=== PATIENT | male | born 1990 | race Two or more races ===

== ENCOUNTER 2017-01-22 16:03 | Inpatient (IN) | payer MEDICAID, OTHER ==
[~2017-01-22] VITALS: Ht 153.9 cm; Wt 76.1 kg
[2017-01-22] MEDS ORDERED: METOCLOPRAMIDE HCL 5MG/ml INJ 2ml VIAL ONE (16:37)
[2017-01-22 16:42] LABS: Basophils # (auto) 0 uL; Basophils % (auto) 0.3 % (0.0-2.0); DEFINITIVE VIEW TRANSMISSION; Eosinophils # (auto) 0 uL; Hematocrit 50.8 % (41.0-53.0); Hemoglobin 17.3 g/dL (13.5-17.5); Lymphocytes # (auto) 1.3 uL; Mean Corpuscular Hemoglobin 35.8 pg (28.0-32.0); Mean Corpuscular Hgb Conc. 34.1 g/dL (32.0-36.0); Mean Corpuscular Volume 104.8 fL (80.0-100.0); Mean Platelet Volume 8.5 fL (7.4-10.4); Monocytes # (auto) 0.7 uL; Monocytes % (auto) 8.8 % (0.0-12.0); Neutrophils # (auto) 6.2 uL; Neutrophils % (auto) 74.9 % (37.0-80.0); Platelet Count (auto) 326 10^3/uL (140-450); Red Cell Distribution Width 14.1 % (11.6-16.0); White Blood Cell 8.3 10^3/uL (4.4-10.8)
[2017-01-22] MEDS ORDERED: METOCLOPRAMIDE HCL 5MG/ml INJ 2ml VIAL IV ONE (16:45)
[2017-01-22] MEDS ORDERED: SODIUM CHLORIDE 0.9% 1,000 ML IV ONE ×2 (16:46→17:00)
[2017-01-22 17:07] LABS: Albumin 4.7 g/dL (3.4-5.0); Alkaline Phosphatase 71 U/L (45-117); Anion Gap 11 (5-15); Aspartate Aminotransferase 33 U/L (15-37); Bilirubin, Total 1.5 mg/dL (0.2-1.0); Blood Urea Nitrogen 15 mg/dL (7-18); Calcium 9.1 mg/dL (8.5-10.1); Carbon Dioxide 23 mmol/L (21-32); Chloride 105 mmol/L (98-107); GFR African American 107 mL/min; GFR Non-African American 88 mL/min; Glucose 107 mg/dL (74-106); Magnesium 2.5 mg/dL (1.6-2.6); Sodium 139 mmol/L (136-145); Total Protein 9.2 g/dL (6.4-8.2)
[2017-01-22 17:26] LABS: Macrocytosis Moderate; Platelet Estimate Adequate
[2017-01-22] MEDS ORDERED: PROCHLORPERAZINE EDISYLATE 5 MG/ML 2ML VIAL ONE (17:48)
[2017-01-22] MEDS ORDERED: PROCHLORPERAZINE EDISYLATE 5 MG/ML 2ML VIAL IV ONE (18:00)
[2017-01-22] MEDS ORDERED: MORPHINE SULF INJ 2 MG/ML SYRINGE 1ML IV PRN (18:15)
[2017-01-22] MEDS ORDERED: TEMAZEPAM 15 MG CAP PO PRN (18:15)
[2017-01-22] MEDS ORDERED: DOCUSATE SOD 100 MG CAP PO PRN (18:15)
[2017-01-22] MEDS ORDERED: HYDROcodone-ACET 5/325MG TAB PO PRN (18:15)
[2017-01-22] MEDS ORDERED: cloNIDine HCL 0.1 MG TAB PO PRN (18:15)
[2017-01-22] MEDS ORDERED: ACETAMINOPHEN 325 MG TAB PO PRN (18:15)
[2017-01-22] MEDS: SODIUM CHLORIDE 0.9% 1,000 ML IV SCH (18:35)
[2017-01-22] MEDS ORDERED: PROMETHAZINE HCL 25 MG/ML 1ML IV ONE (19:30)
[2017-01-22 22:00] VITALS: BP 141/80
[2017-01-22] MEDS: FAMOTIDINE 20 MG TAB PO SCH (22:02)
[2017-01-22] MEDS: ONDANSETRON HCL 4 MG/2 ML VIAL IV PRN (22:22)
[2017-01-22] MEDS ORDERED: DIVA250T51 PO (22:29)
[2017-01-23] MEDS: SODIUM CHLORIDE 0.9% 1,000 ML IV SCH ×3 (01:14→19:09)
[2017-01-23] MEDS: ONDANSETRON HCL 4 MG/2 ML VIAL IV PRN ×2 (04:22→22:33)
[2017-01-23 05:43] VITALS: BP 157/75
[2017-01-23 06:26] LABS: Basophils # (auto) 0 uL; DEFINITIVE VIEW TRANSMISSION; Eosinophils # (auto) 0 uL; Hematocrit 44.8 % (41.0-53.0); Hemoglobin 15.4 g/dL (13.5-17.5); Lymphocytes # (auto) 0.5 uL; Lymphocytes % (auto) 8.3 % (10.0-50.0); Mean Corpuscular Hgb Conc. 34.3 g/dL (32.0-36.0); Mean Corpuscular Volume 104.7 fL (80.0-100.0); Mean Platelet Volume 8.6 fL (7.4-10.4); Monocytes # (auto) 0.3 uL; Monocytes % (auto) 5.4 % (0.0-12.0); Neutrophils # (auto) 5.3 uL; Neutrophils % (auto) 86.3 % (37.0-80.0); Platelet Count (auto) 242 10^3/uL (140-450); Red Cell Distribution Width 14.4 % (11.6-16.0); White Blood Cell 6.1 10^3/uL (4.4-10.8)
[2017-01-23 06:41] LABS: Albumin 3.6 g/dL (3.4-5.0); BUN/Creatinine Ratio 15.6; Calcium 8.6 mg/dL (8.5-10.1); Potassium 3.9 mmol/L (3.5-5.1)
[2017-01-23 06:44] LABS: Bilirubin, Total 1.9 mg/dL (0.2-1.0); Total Protein 7.9 g/dL (6.4-8.2)
[2017-01-23 08:00] VITALS: BP 164/80
[2017-01-23 08:09] LABS: Urine Bilirubin Negative (Negative); Urine Blood TRACE /uL (Negative); Urine Color Yellow (Yellow); Urine Glucose Normal (Normal); Urine Mucus FEW (None Seen); Urine Nitrite Negative (Negative); Urine RBC 2 /hpf (0 - 3); Urine Urobilinogen Normal (Negative)
[2017-01-23 08:14] LABS: Urine Ketone 4+ (Negative)
[2017-01-23 09:00] VITALS: BP 164/80
[2017-01-23] MEDS ORDERED: cefTRIAXone 1GM/50ML D5W 50 ML IV ONE (09:30)
[2017-01-23] MEDS ORDERED: IBUPROFEN 600 MG TAB PO ONE (09:30)
[2017-01-23] MEDS: MULTIPLE VITAMIN TAB PO SCH (11:01)
[2017-01-23] MEDS: FAMOTIDINE 20 MG TAB PO SCH (11:01)
[2017-01-23 13:00] VITALS: BP 124/78
[2017-01-23] MEDS: IBUPROFEN 600 MG TAB PO SCH ×2 (13:44→22:32)
[2017-01-23] MEDS ORDERED: metroNIDAZOLE 500MG/100ML 100 ML IV SCH (14:00)
[2017-01-23 16:49] VITALS: BP 137/98
[2017-01-23 22:21] VITALS: BP 133/82
[2017-01-24] MEDS: SODIUM CHLORIDE 0.9% 1,000 ML IV SCH ×2 (03:29→11:49)
[2017-01-24 05:10] VITALS: BP 120/79
[2017-01-24] MEDS: IBUPROFEN 600 MG TAB PO SCH ×2 (06:07→14:00)
[2017-01-24 06:24] LABS: Basophils # (auto) 0 uL; Basophils % (auto) 0.5 % (0.0-2.0); DEFINITIVE VIEW TRANSMISSION; Eosinophils # (auto) 0 uL; Eosinophils % (auto) 0.4 % (0.0-7.0); Hematocrit 44.4 % (41.0-53.0); Hemoglobin 15.4 g/dL (13.5-17.5); Lymphocytes # (auto) 2.2 uL; Lymphocytes % (auto) 40.1 % (10.0-50.0); Mean Corpuscular Hgb Conc. 34.6 g/dL (32.0-36.0); Mean Platelet Volume 8.8 fL (7.4-10.4); Monocytes # (auto) 0.7 uL; Monocytes % (auto) 13.9 % (0.0-12.0); Neutrophils # (auto) 2.4 uL; Neutrophils % (auto) 45.1 % (37.0-80.0); Platelet Count (auto) 246 10^3/uL (140-450); White Blood Cell 5.4 10^3/uL (4.4-10.8)
[2017-01-24 07:26] LABS: Albumin 3.7 g/dL (3.4-5.0); BUN/Creatinine Ratio 14.9; Bilirubin, Total 2.7 mg/dL (0.2-1.0); Calcium 8.5 mg/dL (8.5-10.1); Potassium 3.6 mmol/L (3.5-5.1); Total Protein 6.9 g/dL (6.4-8.2)
[2017-01-24 08:00] VITALS: BP 123/79
[2017-01-24] MEDS: MULTIPLE VITAMIN TAB PO SCH (08:57)
[2017-01-24] MEDS ORDERED: cefTRIAXone 1GM/50ML D5W 50 ML IV SCH (09:00)
[2017-01-24 09:18] VITALS: BP 123/79
[2017-01-24] MEDS ORDERED: PANTOPRAZOLE 40 MG TAB PO SCH (10:00)
[2017-01-24 12:26] VITALS: BP 120/68
[2017-01-24] MEDS: ONDANSETRON HCL 4 MG/2 ML VIAL IV PRN (14:05)
[2017-01-24 16:59] VITALS: BP 132/83
[2017-01-24 19:46] VITALS: BP 132/83
== END 2017-01-24 21:25 | disposition home or self-care (01) | DRG 282 ==
LOC: ER 16:10 → OVERFLOW 16:11 → CENTRAL 22:01
PROVIDERS: ADMIT Internal Medicine; ATTEND Internal Medicine Pulmonary Disease
DX: K85.90 Acute pancreatitis without necrosis or infection, unspecified (principal); I12.9 Hypertensive chronic kidney disease with stage 1 through stage 4 chronic kidney disease, or unspecified chronic kidney disease; K52.9 Noninfective gastroenteritis and colitis, unspecified; N18.2 Chronic kidney disease, stage 2 (mild); K86.1 Other chronic pancreatitis; E86.0 Dehydration; F10.10 Alcohol abuse, uncomplicated; F17.210 Nicotine dependence, cigarettes, uncomplicated; K21.9 Gastro-esophageal reflux disease without esophagitis; K29.20 Alcoholic gastritis without bleeding; Z82.49 Family history of ischemic heart disease and other diseases of the circulatory system; Z83.3 Family history of diabetes mellitus
CPT/HCPCS: 36415; 71010; 74176; 80053; 80307; 80320; 81001; 82150; 83690; 83735; 84484; 85025; 87040; 96361; 96374; 96375; J0696; J2405; J3490

== ENCOUNTER 2017-02-09 04:49 | Emergency (ER) | payer MEDICAID ==
[~2017-02-09] VITALS: Ht 177.8 cm; Wt 63.5 kg
[~2017-02-09 04:49] MED LIST: DIVA250T51 PO
[2017-02-09 05:52] LABS: Basophils # (auto) 0 uL; Basophils % (auto) 0.5 % (0.0-2.0); DEFINITIVE VIEW TRANSMISSION; Eosinophils # (auto) 0 uL; Eosinophils % (auto) 0.3 % (0.0-7.0); Hematocrit 47.5 % (41.0-53.0); Hemoglobin 16.5 g/dL (13.5-17.5); Lymphocytes # (auto) 1.1 uL; Lymphocytes % (auto) 15.7 % (10.0-50.0); Mean Corpuscular Hemoglobin 36.1 pg (28.0-32.0); Mean Corpuscular Hgb Conc. 34.8 g/dL (32.0-36.0); Mean Corpuscular Volume 103.9 fL (80.0-100.0); Mean Platelet Volume 8.3 fL (7.4-10.4); Monocytes # (auto) 0.4 uL; Monocytes % (auto) 6.2 % (0.0-12.0); Neutrophils # (auto) 5.3 uL; Neutrophils % (auto) 77.3 % (37.0-80.0); Platelet Count (auto) 378 10^3/uL (140-450); Red Cell Distribution Width 14.1 % (11.6-16.0); White Blood Cell 6.9 10^3/uL (4.4-10.8)
[2017-02-09 05:55] LABS: INR 1.04 (0.9-1.15); Partial Thromboplastin Time 25.6 sec (22.64-33.71); Prothrombin Time 11.3 sec (9.37-12.3)
[2017-02-09 06:12] LABS: Alkaline Phosphatase 79 U/L (45-117); Amylase 47 U/L (25-115); Anion Gap 10 (5-15); Aspartate Aminotransferase 34 U/L (15-37); BUN/Creatinine Ratio 14.8; Bilirubin, Total 0.7 mg/dL (0.2-1.0); Blood Urea Nitrogen 13 mg/dL (7-18); Calcium 8.7 mg/dL (8.5-10.1); Carbon Dioxide 27 mmol/L (21-32); Chloride 105 mmol/L (98-107); GFR African American 134 mL/min; GFR Non-African American 110 mL/min; Glucose 103 mg/dL (74-106); Potassium 4.1 mmol/L (3.5-5.1); Sodium 142 mmol/L (136-145); Total Protein 7.4 g/dL (6.4-8.2)
[2017-02-09 10:25] VITALS: BP 129/89
== END 2017-02-09 12:25 | disposition home or self-care (01) ==
LOC: EDBD 04:49 → ER 04:57
DX: K29.20 Alcoholic gastritis without bleeding (principal); K21.9 Gastro-esophageal reflux disease without esophagitis; F17.210 Nicotine dependence, cigarettes, uncomplicated; F12.10 Cannabis abuse, uncomplicated; K86.1 Other chronic pancreatitis
CPT/HCPCS: 36415; 74176; 80053; 82150; 83690; 84484; 85025; 85610; 85730